=== PATIENT | female | born 1975 | race Native Hawaiian/Other Pacific Islander ===

== ENCOUNTER 2017-05-18 17:40 | Emergency (ER) | payer BC ==
[~2017-05-18] VITALS: Ht 172.7 cm; Wt 72.6 kg
== END 2017-05-18 20:01 | disposition home or self-care (01) ==
LOC: ED 17:40
DX: M79.1 Myalgia (principal); R07.81 Pleurodynia; R10.12 Left upper quadrant pain
CPT/HCPCS: 93005; 99283

== ENCOUNTER 2019-11-04 08:08 | Outpatient (CLI) | payer BC ==
[~2019-11-04] VITALS: Ht 172.7 cm; Wt 72.6 kg
[2019-11-04 08:15] VITALS: BP 115/72; TEMP 97.8
== END 2019-11-04 09:25 | disposition home or self-care (01) ==
LOC: INF 08:08
DX: D50.0 Iron deficiency anemia secondary to blood loss (chronic) (principal); N92.0 Excessive and frequent menstruation with regular cycle
CPT/HCPCS: 96365; J1439

== ENCOUNTER 2022-07-25 15:24 | Outpatient (CLI) | payer BC | END 2022-07-25 22:22 | disposition home or self-care (01) | LOC: MAMMO 15:24 | PROVIDERS: ATTEND Nurse Practitioner Family | DX: Z12.31 Encounter for screening mammogram for malignant neoplasm of breast (principal) ==

== ENCOUNTER 2022-09-13 14:13 | Outpatient (CLI) | payer BC | END 2022-09-13 18:59 | disposition home or self-care (01) | LOC: MAMMO 14:13 | PROVIDERS: ATTEND Nurse Practitioner Family | DX: R92.2 Inconclusive mammogram (principal) ==